=== PATIENT | male | born 1960 | race African-American/Black ===

== ENCOUNTER 2016-08-24 12:01 | Inpatient (IN) | payer OTHER ==
[2016-08-24 12:23] VITALS: BMI 27.1
--- NOTE | 2016-08-24 14:49 | HP ---
CIWA Score - CIWA Score Nausea/Vomitin Muscle Tremors: 3 Anxiety: 3 Agitation: 3 Paroxysmal Sweats: 1-Minimal Palms Moist Orientation: 0-Oriented Tacttile Disturbances: 2-Mild Itch/Numbness/Burn Auditory Disturbances: 2-Mild Harshness/Frighten Visual Disturbances: 2-Mild Sensitivity Headache: 2-Mild CIWA-Ar Total Score: 21 Admission ROS BHS - HPI Chief Complaint: i need help to stop drinking alcohol and cocaine Allergies/Adverse Reactions: Allergies Allergy/AdvReac Type Severity Reaction Status Date / Time aspirin Allergy Severe Nausea Verified 08/24/16 14:40 History of Present Illness: this 56 years old male with alcohol and cocaine dependence,withdrawal symptom, last detox [facility] 08/02 multiple admissions in detox and rehab weight loss nicotine dependence gerd longest period of sobriety 3 years Exam Limitations: No Limitations - Ebola screening Have you traveled outside of the country in the last 21 days: No Have you had contact with anyone from an Ebola affected area: No Have you been sick,other than usual withdrawal symptoms: No Do you have a fever: No - Review of Systems Constitutional: Loss of Appetite, Malaise, Night Sweats, Changes in sleep, Weakness, Unintentional Wgt. Loss EENT: reports: Nose Congestion Respiratory: reports: No Symptoms reported Cardiac: reports: No Symptoms Reported GI: reports: Nausea, Vomiting, Abdominal cramping : reports: No Symptoms Reported Musculoskeletal: reports: Back Pain, Muscle Pain Integumentary: reports: Dryness Neuro: reports: Headache, Tremors Endocrine: reports: No Symptoms Reported Hematology: reports: No Symptoms Reported, Other (hiv) Psychiatric: reports: other (bipolar disorder) Patient History - Patient Medical History Hx Anemia: No Hx Asthma: Yes (on albutrol and symbicort) Hx Chronic Obstructive Pulmonary Disease (COPD): No Hx Cancer: No Hx Cardiac Disorders: No Hx Congestive Heart Failure: No Hx Hypertension: No Hx Hypercholesterolemia: No Hx Pacemaker: No HX Cerebrovascular Accident: No Hx Seizures: No Hx Dementia: No Hx Diabetes: No Hx Gastrointestinal Disorders: Yes (gerd) Hx Liver Disease: No Hx Genitourinary Disorders: No Hx Sexually Transmitted Disorders: No Hx Renal Disease (ESRD): No Hx Thyroid Disease: No Hx Human Immunodeficiency Virus (HIV): Yes (since 2000) Hx Hepatitis C: No Hx Depression: No Hx Suicide Attempt: No Hx Bipolar Disorder: Yes Hx Schizophrenia: No Other Medical History: no suicidal,no homicidal - Patient Surgical History Past Surgical History: Yes Other Surgical History: homorrhoidectomy in 1995 - PPD History Previous Implant?: Yes Documented Results: Negative w/proof PPD to be Administered?: Yes - Smoking Cessation Smoking history: Current every day smoker Have you smoked in the past 12 months: Yes Aproximately how many cigarettes per day: 20 Cigars Per Day: 0 Initiated information on smoking cessation: Yes 'Breaking Loose' booklet given: 08/24/16 - Substance & Tx. History Hx Alcohol Use: Yes Hx Substance Use: Yes Substance Use Type: Alcohol, Cocaine Hx Substance Use Treatment: Yes Family Disease History - Family Disease History Family History: Denies Family Disease History: Other: Father (alcohol) Admission Physical Exam [facility] - Vital Signs Vital Signs: Vital Signs - 24 hr 08/24/16 12:20 Temperature 96.5 F L Pulse Rate 82 Respiratory 18 Rate Blood Pressure 126/91 - Physical General Appearance: Yes: Moderate Distress, Tremorous, Irritable, Sweating, Anxious HEENTM: Yes: Nasal Congestion Respiratory: Yes: Lungs Clear Neck: Yes: Within Normal Limits Breast: Yes: Within Normal Limits Cardiology: Yes: Within Normal Limits, Regular Rhythm, Regular Rate, S1, S2 Abdominal: Yes: Within Normal Limits, Normal Bowel Sounds, Non Tender, Flat, Soft Genitourinary: Yes: Within Normal Limits Back: Yes: Muscle Spasm Musculoskeletal: Yes: Back pain, Muscle Pain Extremities: Yes: Tremors Neurological: Yes: Within Normal Limits, satellite dish technician II-XII NML intact, Fully Oriented, Alert Integumentary: Yes: Dry Lymphatic: Yes: Within Normal Limits - Diagnostic (1) Alcohol dependence with uncomplicated withdrawal Current Visit: Yes Status: Acute (2) Cocaine dependence Current Visit: Yes Status: Acute (3) HIV (human immunodeficiency virus infection) Current Visit: Yes Status: Acute (4) Bipolar disorder Current Visit: Yes Status: Acute (5) Nicotine dependence Current Visit: Yes Status: Acute (6) Low back pain Current Visit: Yes Status: Acute (7) Neck pain Current Visit: Yes Status: Acute Cleared for Admission [facility] - Detox or Rehab [facility] Level of Care: Medically Managed Detox Regimen/Protocol: Librium S Breath Alcohol Content Breath Alcohol Content: 0.017 Urine Drug Screen - Results Drug Screen Negative: No Urine Drug Screen Results: ROXANE-Cocaine, OXY-Oxycodone
[2016-08-24] MEDS ORDERED: ACETAMINOPHEN 325 MG TABLET (FP) PO PRN (15:03)
[2016-08-24] MEDS ORDERED: hydrOXYzine PAMOATE 50 MG CAPSULE (FP) PO PRN (15:03)
[2016-08-24] MEDS ORDERED: MENTHOL/PHENOL 1 EACH UD MM PRN (15:03)
[2016-08-24] MEDS ORDERED: MAG HYDROX/AL HYDROX/SIMETH 30 ML UNIT-DOSE CUP PO PRN (15:03)
[2016-08-24] MEDS ORDERED: IBUPROFEN 400 MG TABLET (FP) PO PRN (15:03)
[2016-08-24] MEDS ORDERED: chlordiazePOXIDE HCL 25 MG CAPSULE PO PRN (15:03)
[2016-08-24] MEDS ORDERED: NICOTINE POLACRILEX 2 MG GUM BUC PRN (15:03)
[2016-08-24] MEDS ORDERED: guaiFENesin/D-METHORPHAN HB 10 ML UNIT-DOSE CUPS PO PRN (15:03)
[2016-08-24] MEDS ORDERED: P-EPHED 60MG/TRIPROLIDI 2.5MG TABLET PO PRN (15:03)
[2016-08-24] MEDS ORDERED: LOPERAMIDE HCL 2 MG CAPSULE PO PRN (15:03)
[2016-08-24] MEDS ORDERED: MAGNESIUM CITRATE 300 ML BOTTLE PO PRN (15:03)
[2016-08-24] MEDS ORDERED: MAGNESIUM HYDROX 2400MG/30ML ORAL SUSPENSION 30 ML CUP PO PRN (15:03)
[2016-08-24] MEDS ORDERED: ALBUTEROL SO4 6.7 GM HFA INHALER IH PRN (15:09)
[2016-08-24] MEDS ORDERED: chlordiazePOXIDE HCL 25 MG CAPSULE PO ONE (15:22)
[2016-08-24] MEDS: NICOTINE 21 MG/24 HOURS TOPICAL PATCH TD SCH (15:43)
[2016-08-24] MEDS ORDERED: PATIENT'S OWN MEDICATION (NON-FORMULARY) (Omeprazole 40 MG) PO SCH (16:30)
[2016-08-24] MEDS: chlordiazePOXIDE HCL 25 MG CAPSULE PO SCH ×2 (17:17→22:16)
--- NOTE | 2016-08-24 17:30 | PN ---
S Progress Note Note: RECEIVED PHARMACIST CALL PNEUMO 13 SHOULD NOT GIVE DUE TO PATIENT IS A SMOKER DISCONTINUE PNEUMO 13 ONE DOSE PNEUMOVAC CONTINUE DETOX
[2016-08-24 20:21] LABS: URINE APPEARANCE CLEAR; URINE BILIRUBIN NEGATIVE (NEGATIVE); URINE COLOR YELLOW; URINE GLUCOSE (UA) NEGATIVE (NEGATIVE); URINE KETONE NEGATIVE (NEGATIVE); URINE LEUK ESTERASE NEGATIVE (NEGATIVE); URINE NITRITE NEGATIVE (NEGATIVE); URINE UROBILINOGEN NEGATIVE E.U./dl (0.2-1.0)
[2016-08-24 20:24] LABS: URINE BLOOD 1+ (NEGATIVE); URINE PROTEIN 1+ (NEGATIVE)
[2016-08-24 20:37] LABS: URINE MUCUS FEW; URINE RBC 8 /hpf (0-3); URINE WBC <1 /hpf (3-5)
[2016-08-24] MEDS: BUDESONIDE/FORMETEROL FUMARATE 160/4.5 mcg INHALER IH SCH (22:16)
[2016-08-24] MEDS: FLUTICASONE PROP 0.05% 16 GM NASAL SPRAY NS SCH (22:16)
[2016-08-24] MEDS: diphenhydrAMINE HCL 50 MG CAPSULE PO PRN (22:17)
[2016-08-24] MEDS: EMTRICITAB PO SCH (22:18)
[2016-08-24] MEDS: TENOFOVIR PO SCH (22:18)
[2016-08-24] MEDS: EFAVIRENZ PO SCH (22:18)
[2016-08-24] MEDS: THIAMINE HCL 100 MG TABLET (FP) PO SCH (22:19)
[2016-08-25] MEDS: chlordiazePOXIDE HCL 25 MG CAPSULE PO SCH ×4 (06:07→22:33)
[2016-08-25] MEDS ORDERED: PANTOPRAZOLE 40 MG TABLET (FP) PO SCH ×2 (06:40→10:00)
[2016-08-25] MEDS ORDERED: PANTOPRAZOLE 40 MG TABLET (FP) PO ONE (07:21)
[2016-08-25] MEDS ORDERED: OMEPRAZOLE PO SCH (10:00)
--- NOTE | 2016-08-25 10:25 | PN ---
[facility] CIWA - CIWA Score Nausea/Vomitin-No Nausea/No Vomiting Muscle Tremors: 4-Moderate,w/Arms Extend Anxiety: 4-Mod. Anxious/Guarded Agitation: 4-Moderately Restless Paroxysmal Sweats: 1-Minimal Palms Moist Orientation: 0-Oriented Tacttile Disturbances: 3-Moderate Itch/Numb/Burn Auditory Disturbances: 0-None Visual Disturbances: 0-None Headache: 0-None Present CIWA-Ar Total Score: 16 S Progress Note (SOAP) Subjective: ANXIETY,IRRITABILITY,RIGHT SHOULDER PAIN--HX TORN ROTATOR CUFF AND TAKES PERCOCET. Objective: 08/25/16 10:24 Vital Signs Temperature 97.3 F L 08/25/16 09:46 Pulse Rate 94 H 08/25/16 09:46 Respiratory Rate 20 08/25/16 09:46 Blood Pressure 115/67 08/25/16 09:46 O2 Sat by Pulse Oximetry (%) Laboratory Last Values Sodium 142 mmol/L (136-145) 08/25/16 06:00 Potassium 4.1 mmol/L (3.5-5.1) 08/25/16 06:00 Chloride 107 mmol/L (98-107) 08/25/16 06:00 Urine Color Yellow 08/24/16 19:45 Urine Appearance Clear 08/24/16 19:45 Urine pH 5.0 (5.0-8.0) 08/24/16 19:45 Ur Specific [place] 1.028 (1.001-1.035) 08/24/16 19:45 Urine Protein 1+ (NEGATIVE) H 08/24/16 19:45 Urine Glucose (UA) Negative (NEGATIVE) 08/24/16 19:45 Urine Ketones Negative (NEGATIVE) 08/24/16 19:45 Urine Blood 1+ (NEGATIVE) H 08/24/16 19:45 Urine Nitrite Negative (NEGATIVE) 08/24/16 19:45 Urine Bilirubin Negative (NEGATIVE) 08/24/16 19:45 Urine Urobilinogen Negative E.U./dl (0.2-1.0) 08/24/16 19:45 Ur Leukocyte Esterase Negative (NEGATIVE) 08/24/16 19:45 Urine RBC 8 /hpf (0-3) 08/24/16 19:45 Urine WBC <1 /hpf (3-5) 08/24/16 19:45 Urine Mucus Few 08/24/16 19:45 Assessment: 08/25/16 10:24 WITHDRAWAL SX Plan: CONTINUE DETOX FLEXERIL DIRECTED.
[2016-08-25] MEDS: BUDESONIDE/FORMETEROL FUMARATE 160/4.5 mcg INHALER IH SCH ×2 (10:29→22:32)
[2016-08-25] MEDS: PRENATAL VITAMINS W/ FOLIC ACID TABLET (FP) PO SCH (10:29)
[2016-08-25] MEDS: FLUTICASONE PROP 0.05% 16 GM NASAL SPRAY NS SCH ×2 (10:30→23:03)
[2016-08-25] MEDS: NICOTINE 21 MG/24 HOURS TOPICAL PATCH TD SCH (10:30)
[2016-08-25 10:32] LABS: ALBUMIN 4.1 g/dl (3.4-5.0); ALK PHOS 112 U/L (45-117); ANION GAP 8 (8-16); BILIRUBIN,TOTAL 0.3 mg/dL (0.2-1.0); CALCIUM 8.9 mg/dL (8.5-10.1); CO2 27 mmol/L (21-32); CREATININE 1.2 mg/dL (0.7-1.3); GLUCOSE,RANDOM 91 mg/dL (74-106); SGOT/AST 28 U/L (15-37); SGPT/ALT 23 U/L (12-78); TOT PROT 7.8 g/dl (6.4-8.2)
[2016-08-25 10:34] LABS: MCH 32.7 pg (25.7-33.7); MCHC 33.4 g/dl (32.0-35.9); MEAN CELL VOLUME 98.1 fl (80-96); PLATELET COUNT 183 K/MM3 (134-434); RDW 13.4 % (11.9-15.9); WHITE BLOOD COUNT 8.4 K/mm3 (4.0-10.0)
--- NOTE | 2016-08-25 11:37 | CONSULT ---
[facility] Psychiatric Consult - Data Date of interview: 08/25/16 Admission source: [facility] Identifying data: First admission to [facility] for this 56 y/o AA male seeking detox treatment on for alcohol and cocaine dependence.Patient is ,a father of three,domiciled,unemployed and supported on [employer] funds. Substance Abuse History: - Smoking Cessation. Smoking history: Current every day smoker. Have you smoked in the past 12 months: Yes. Aproximately how many cigarettes per day: 20. Cigars Per Day: 0. Initiated information on smoking cessation: Yes. 'Breaking Loose' booklet given: 08/24/16. - Substance & Tx. History. Hx Alcohol Use: Yes. Hx Substance Use: Yes. Substance Use Type: Alcohol, Cocaine. Hx Substance Use Treatment: Yes. Confirmed by patient in this interview. Medical History: Remarkable for HIV infection since 2000,GERD,brochialmasthma, chronic back pain and a history of hemorrhoidectomy (1995). Psychiatric History: Diagnosed with MDD,Adjustment Disorder and Bipolar Disorder ,as per self-report.Mr Addison informs that he takes celexa,abilfy and clonazepam at home.No reported history of psychiatric hospitalizations.The patient gets his OPD care services at the [facility] in the [place].He endorses a history of fair adherence to aftercare and he denies any occurrence of suicide attempts. Physical/Sexual Abuse/Trauma History: Patient denies. Additional Comment: Urine Drug Screen Results: ROXANE-Cocaine, OXY-Oxycodone.Noted. Mental Status Exam - Mental Status Exam Alert and Oriented to: Time, Place, Person Cognitive Function: Good Patient Appearance: Well Groomed Mood: Withdrawn, Hopeful Affect: Mood Congruent Patient Behavior: Fatigued, Appropriate, Cooperative Speech Pattern: Clear, Appropriate Voice Loudness: Normal Thought Process: Goal Oriented Thought Disorder: Not Present Hallucinations: Denies Suicidal Ideation: Denies Homicidal Ideation: Denies Insight/Judgement: Poor Sleep: Fair Appetite: Good Muscle strength/Tone: Normal Gait/Station: Normal Psychiatric Findings - Problem List ([place] 1, 2,3) (1) Alcohol dependence with uncomplicated withdrawal Current Visit: Yes Status: Acute (2) Cocaine dependence Current Visit: Yes Status: Acute (3) Nicotine dependence Current Visit: Yes Status: Acute (4) Bipolar disorder Current Visit: Yes Status: Chronic (5) Low back pain Current Visit: Yes Status: Chronic - Initial Treatment Plan Initial Treatment Plan: Psychoeducation.Detoxification.Medications : citalopram 20 mg po daily + aripriprazole 15 mg po hs.Side effects/benefits of each drug discussed with the patient.He expresses his agreement to this careplan.Observation.
[2016-08-25] MEDS ORDERED: PNEUMOC 13-VAL CONJ-DIP CRM/PF 0.5 ML DISP.SYRIN IM ONE ×2 (12:00→13:45)
[2016-08-25] MEDS ORDERED: PNEUMOCOCCAL 23 VACCINE 0.5 ML VIAL IM ONE (12:00)
[2016-08-25] MEDS: CITALOPRAM HYDROBROMIDE 20 MG TABLET (FP) PO SCH (13:08)
[2016-08-25] MEDS: CYCLOBENZAPRINE HCL 10 MG TABLET (FP) PO SCH ×2 (13:24→22:33)
--- NOTE | 2016-08-25 13:33 | EKG ---
Test Reason : Blood Pressure : / mmHG Vent. Rate : 083 BPM Atrial Rate : 083 BPM P-R Int : 142 ms QRS Dur : 094 ms QT Int : 372 ms P-R-T Axes : 060 057 006 degrees QTc Int : 437 ms NORMAL SINUS RHYTHM NORMAL ECG NO PREVIOUS ECGS AVAILABLE Confirmed by CANDELARIO WRAY, MARCELA ([id number]) on 08/25/2016 1:33:02 PM Referred By: Confirmed By:MARCELA PALOMINO MD
--- NOTE | 2016-08-25 19:14 | PN ---
[facility] Progress Note Note: RECEIVED NURSE CALL PATIENT WANTS PROTONIX BID RECOMMEND TO PROVIDE OVER DOSE OF PROTONIX SIDE EFFECTS TO THE PATIENT
[2016-08-25] MEDS: THIAMINE HCL 100 MG TABLET (FP) PO SCH (22:32)
[2016-08-25] MEDS: ARIPiprazole 15 MG TABLET PO SCH (22:33)
[2016-08-25] MEDS: EFAVIRENZ PO SCH (22:34)
[2016-08-25] MEDS: TENOFOVIR PO SCH (22:34)
[2016-08-25] MEDS: EMTRICITAB PO SCH (22:34)
[2016-08-25] MEDS: diphenhydrAMINE HCL 50 MG CAPSULE PO PRN (22:36)
[2016-08-26] MEDS: chlordiazePOXIDE HCL 25 MG CAPSULE PO SCH ×2 (05:53→10:27)
[2016-08-26] MEDS: CYCLOBENZAPRINE HCL 10 MG TABLET (FP) PO SCH ×3 (05:53→22:34)
[2016-08-26] MEDS: PANTOPRAZOLE 40 MG TABLET (FP) PO SCH (05:53)
[2016-08-26] MEDS: CITALOPRAM HYDROBROMIDE 20 MG TABLET (FP) PO SCH (10:27)
[2016-08-26] MEDS: PRENATAL VITAMINS W/ FOLIC ACID TABLET (FP) PO SCH (10:27)
[2016-08-26] MEDS: NICOTINE 21 MG/24 HOURS TOPICAL PATCH TD SCH (10:27)
[2016-08-26] MEDS: BUDESONIDE/FORMETEROL FUMARATE 160/4.5 mcg INHALER IH SCH ×2 (10:28→22:35)
[2016-08-26] MEDS: FLUTICASONE PROP 0.05% 16 GM NASAL SPRAY NS SCH ×2 (10:29→22:35)
--- NOTE | 2016-08-26 10:39 | PN ---
[facility] CIWA - CIWA Score Nausea/Vomitin-No Nausea/No Vomiting Muscle Tremors: 4-Moderate,w/Arms Extend Anxiety: 4-Mod. Anxious/Guarded Agitation: 4-Moderately Restless Paroxysmal Sweats: 1-Minimal Palms Moist Orientation: 0-Oriented Tacttile Disturbances: 3-Moderate Itch/Numb/Burn Auditory Disturbances: 0-None Visual Disturbances: 0-None Headache: 0-None Present CIWA-Ar Total Score: 16 S Progress Note (SOAP) Subjective: ANXIETY,SWEATS,TREMORS,FATIGUE. Objective: 08/26/16 10:39 Vital Signs Temperature 96.2 F L 08/26/16 10:20 Pulse Rate 81 08/26/16 10:20 Respiratory Rate 18 08/26/16 10:20 Blood Pressure 105/61 08/26/16 10:20 O2 Sat by Pulse Oximetry (%) Laboratory Last Values WBC 8.4 K/mm3 (4.0-10.0) 08/25/16 06:00 RBC 4.45 M/mm3 (4.00-5.60) 08/25/16 06:00 Hgb 14.6 GM/dL (11.7-16.9) 08/25/16 06:00 Hct 43.7 % (35.4-49) 08/25/16 06:00 MCV 98.1 fl (80-96) H 08/25/16 06:00 MCHC 33.4 g/dl (32.0-35.9) 08/25/16 06:00 RDW 13.4 % (11.9-15.9) 08/25/16 06:00 Plt Count 183 K/MM3 (134-434) 08/25/16 06:00 MPV 8.0 fl (7.5-11.1) 08/25/16 06:00 Sodium 142 mmol/L (136-145) 08/25/16 06:00 Potassium 4.1 mmol/L (3.5-5.1) 08/25/16 06:00 Chloride 107 mmol/L (98-107) 08/25/16 06:00 Carbon Dioxide 27 mmol/L (21-32) 08/25/16 06:00 Anion Gap 8 (8-16) 08/25/16 06:00 BUN 14 mg/dL (7-18) 08/25/16 06:00 Creatinine 1.2 mg/dL (0.7-1.3) 08/25/16 06:00 Creat Clearance w eGFR > 60 (>60) 08/25/16 06:00 Random Glucose 91 mg/dL (74-106) 08/25/16 06:00 Calcium 8.9 mg/dL (8.5-10.1) 08/25/16 06:00 Total Bilirubin 0.3 mg/dL (0.2-1.0) 08/25/16 06:00 AST 28 U/L (15-37) 08/25/16 06:00 ALT 23 U/L (12-78) 08/25/16 06:00 Alkaline Phosphatase 112 U/L (45-117) 08/25/16 06:00 Total Protein 7.8 g/dl (6.4-8.2) 08/25/16 06:00 Albumin 4.1 g/dl (3.4-5.0) 08/25/16 06:00 Urine Color Yellow 08/24/16 19:45 Urine Appearance Clear 08/24/16 19:45 Urine pH 5.0 (5.0-8.0) 08/24/16 19:45 Ur Specific [place] 1.028 (1.001-1.035) 08/24/16 19:45 Urine Protein 1+ (NEGATIVE) H 08/24/16 19:45 Urine Glucose (UA) Negative (NEGATIVE) 08/24/16 19:45 Urine Ketones Negative (NEGATIVE) 08/24/16 19:45 Urine Blood 1+ (NEGATIVE) H 08/24/16 19:45 Urine Nitrite Negative (NEGATIVE) 08/24/16 19:45 Urine Bilirubin Negative (NEGATIVE) 08/24/16 19:45 Urine Urobilinogen Negative E.U./dl (0.2-1.0) 08/24/16 19:45 Ur Leukocyte Esterase Negative (NEGATIVE) 08/24/16 19:45 Urine RBC 8 /hpf (0-3) 08/24/16 19:45 Urine WBC <1 /hpf (3-5) 08/24/16 19:45 Urine Mucus Few 08/24/16 19:45 RPR Titer Nonreactive (NONREACTIVE) 08/25/16 06:00 Assessment: 08/26/16 10:39 WITHDRAWAL SX Plan: CONTINUE DETOX
[2016-08-26] MEDS: chlordiazePOXIDE 5 MG CAPSULE PO SCH ×2 (17:59→22:33)
[2016-08-26] MEDS: THIAMINE HCL 100 MG TABLET (FP) PO SCH (22:33)
[2016-08-26] MEDS: EFAVIRENZ PO SCH (22:34)
[2016-08-26] MEDS: ARIPiprazole 15 MG TABLET PO SCH (22:34)
[2016-08-26] MEDS: TENOFOVIR PO SCH (22:34)
[2016-08-26] MEDS: EMTRICITAB PO SCH (22:34)
[2016-08-26] MEDS: diphenhydrAMINE HCL 50 MG CAPSULE PO PRN (22:35)
[2016-08-27] MEDS: chlordiazePOXIDE 5 MG CAPSULE PO SCH ×2 (06:02→10:14)
[2016-08-27] MEDS: CYCLOBENZAPRINE HCL 10 MG TABLET (FP) PO SCH ×3 (06:02→22:04)
[2016-08-27] MEDS: PANTOPRAZOLE 40 MG TABLET (FP) PO SCH (06:02)
[2016-08-27] MEDS: BUDESONIDE/FORMETEROL FUMARATE 160/4.5 mcg INHALER IH SCH ×2 (10:14→22:05)
[2016-08-27] MEDS: PRENATAL VITAMINS W/ FOLIC ACID TABLET (FP) PO SCH (10:14)
[2016-08-27] MEDS: FLUTICASONE PROP 0.05% 16 GM NASAL SPRAY NS SCH ×2 (10:14→22:04)
[2016-08-27] MEDS: CITALOPRAM HYDROBROMIDE 20 MG TABLET (FP) PO SCH (10:15)
[2016-08-27] MEDS: NICOTINE 21 MG/24 HOURS TOPICAL PATCH TD SCH (10:15)
[2016-08-27] MEDS: AMMONIUM LACTATE 12% LOTION 225 GM BOTTLE TP SCH ×2 (10:51→22:07)
--- NOTE | 2016-08-27 10:54 | PN ---
[facility] Progress Note (SOAP) Subjective: ANXIETY,SWEATS,FATIGUE. DRY SKIN. Objective: 08/27/16 10:53 Vital Signs Temperature 96 F L 08/27/16 10:42 Pulse Rate 87 08/27/16 10:42 Respiratory Rate 20 08/27/16 10:42 Blood Pressure 108/82 08/27/16 10:42 O2 Sat by Pulse Oximetry (%) Assessment: 08/27/16 10:54 WITHDRAWAL SX Plan: CONTINUE DETOX
[2016-08-27] MEDS: chlordiazePOXIDE HCL 10 MG CAPSULE PO SCH ×2 (17:18→22:18)
[2016-08-27] MEDS: ARIPiprazole 15 MG TABLET PO SCH (22:04)
[2016-08-27] MEDS: TENOFOVIR PO SCH (22:05)
[2016-08-27] MEDS: EFAVIRENZ PO SCH (22:05)
[2016-08-27] MEDS: EMTRICITAB PO SCH (22:05)
[2016-08-27] MEDS: diphenhydrAMINE HCL 50 MG CAPSULE PO PRN (22:06)
[2016-08-27] MEDS: THIAMINE HCL 100 MG TABLET (FP) PO SCH (22:07)
[2016-08-28] MEDS: chlordiazePOXIDE HCL 10 MG CAPSULE PO SCH (05:54)
[2016-08-28] MEDS: PANTOPRAZOLE 40 MG TABLET (FP) PO SCH (05:54)
[2016-08-28] MEDS: CYCLOBENZAPRINE HCL 10 MG TABLET (FP) PO SCH (05:55)
[2016-08-28 09:47] VITALS: BP 115/73; PULSE 86; TEMP 96
--- NOTE | 2016-08-28 09:48 | DS ---
[facility] Detox Discharge Summary Admission Date: 08/24/16 Discharge Date: 08/28/16 - History Present History: Alcohol Dependence, Cocaine Dependence Pertinent Past History: HIV - Physical Exam Results Vital Signs: Vital Signs Temperature 96.2 F L 08/28/16 07:08 Pulse Rate 83 08/28/16 07:08 Respiratory Rate 16 08/28/16 07:08 Blood Pressure 104/70 08/28/16 07:08 O2 Sat by Pulse Oximetry (%) Pertinent Admission Physical Exam Findings: withdrawal sx. Laboratory Last Values WBC 8.4 K/mm3 (4.0-10.0) 08/25/16 06:00 RBC 4.45 M/mm3 (4.00-5.60) 08/25/16 06:00 Hgb 14.6 GM/dL (11.7-16.9) 08/25/16 06:00 Hct 43.7 % (35.4-49) 08/25/16 06:00 MCV 98.1 fl (80-96) H 08/25/16 06:00 MCHC 33.4 g/dl (32.0-35.9) 08/25/16 06:00 RDW 13.4 % (11.9-15.9) 08/25/16 06:00 Plt Count 183 K/MM3 (134-434) 08/25/16 06:00 MPV 8.0 fl (7.5-11.1) 08/25/16 06:00 Sodium 142 mmol/L (136-145) 08/25/16 06:00 Potassium 4.1 mmol/L (3.5-5.1) 08/25/16 06:00 Chloride 107 mmol/L (98-107) 08/25/16 06:00 Carbon Dioxide 27 mmol/L (21-32) 08/25/16 06:00 Anion Gap 8 (8-16) 08/25/16 06:00 BUN 14 mg/dL (7-18) 08/25/16 06:00 Creatinine 1.2 mg/dL (0.7-1.3) 08/25/16 06:00 Creat Clearance w eGFR > 60 (>60) 08/25/16 06:00 Random Glucose 91 mg/dL (74-106) 08/25/16 06:00 Calcium 8.9 mg/dL (8.5-10.1) 08/25/16 06:00 Total Bilirubin 0.3 mg/dL (0.2-1.0) 08/25/16 06:00 AST 28 U/L (15-37) 08/25/16 06:00 ALT 23 U/L (12-78) 08/25/16 06:00 Alkaline Phosphatase 112 U/L (45-117) 08/25/16 06:00 Total Protein 7.8 g/dl (6.4-8.2) 08/25/16 06:00 Albumin 4.1 g/dl (3.4-5.0) 08/25/16 06:00 Urine Color Yellow 08/24/16 19:45 Urine Appearance Clear 08/24/16 19:45 Urine pH 5.0 (5.0-8.0) 08/24/16 19:45 Ur Specific [place] 1.028 (1.001-1.035) 08/24/16 19:45 Urine Protein 1+ (NEGATIVE) H 08/24/16 19:45 Urine Glucose (UA) Negative (NEGATIVE) 08/24/16 19:45 Urine Ketones Negative (NEGATIVE) 08/24/16 19:45 Urine Blood 1+ (NEGATIVE) H 08/24/16 19:45 Urine Nitrite Negative (NEGATIVE) 08/24/16 19:45 Urine Bilirubin Negative (NEGATIVE) 08/24/16 19:45 Urine Urobilinogen Negative E.U./dl (0.2-1.0) 08/24/16 19:45 Ur Leukocyte Esterase Negative (NEGATIVE) 08/24/16 19:45 Urine RBC 8 /hpf (0-3) 08/24/16 19:45 Urine WBC <1 /hpf (3-5) 08/24/16 19:45 Urine Mucus Few 08/24/16 19:45 RPR Titer Nonreactive (NONREACTIVE) 08/25/16 06:00 labs noted - Treatment Hospital Course: Detox Protocol Followed, Detoxed Safely, Responded well, Discharged Condition Good, Rehab Referral Accepted - Medication Discharge Medications: Ambulatory Orders Albuterol Sulfate Inhaler - [Ventolin Hfa Inhaler -] 2 inh PO Q4H PRN 08/24/16 Ammonium Lactate Lotion [Lac-Hydrin 12% Lotion -] 1 applic TP ASDIR 08/24/16 Aripiprazole [Abilify -] 15 mg PO DAILY 08/24/16 Budesonide/Formeterol Fumarate [SYMBICORT 160/4.5mcg -] 2 inh PO BID 08/24/16 Citalopram Hydrobromide [Celexa -] 20 mg PO DAILY 08/24/16 Efavirenz/Emtricitab/Tenofovir [Atripla -] 1 tab PO HS 08/24/16 Fluticasone Prop 0.05% Nasal [Flonase -] 1 inh IH BID 08/24/16 Multivitamins [Tab-A-Vit -] 1 tab PO DAILY 08/24/16 Omeprazole 40 mg PO BID 08/24/16 Aripiprazole [Abilify -] 15 mg PO HS #30 tablet 08/25/16 Citalopram Hydrobromide [Celexa -] 20 mg PO DAILY #30 tablet 08/25/16 - Diagnosis (1) Alcohol dependence with uncomplicated withdrawal Current Visit: Yes Status: Acute (2) Cocaine dependence Current Visit: Yes Status: Acute Qualifiers: Substance use status: uncomplicated Qualified Code(s): F14.20 - Cocaine dependence, uncomplicated (3) HIV (human immunodeficiency virus infection) Current Visit: Yes Status: Acute (4) Nicotine dependence Current Visit: Yes Status: Acute Qualifiers: Nicotine product type: cigarettes Substance use status: uncomplicated Qualified Code(s): F17.210 - Nicotine dependence, cigarettes, uncomplicated (5) Bipolar disorder Current Visit: Yes Status: Chronic (6) Asthma Current Visit: Yes Status: Acute Qualifiers: Asthma severity: mild intermittent Asthma complication type: uncomplicated Qualified Code(s): J45.20 - Mild intermittent asthma, uncomplicated (7) GERD (gastroesophageal reflux disease) Current Visit: Yes Status: Acute Qualifiers: Esophagitis presence: without esophagitis Qualified Code(s): K21.9 - Gastro-esophageal reflux disease without esophagitis - AMA Did Patient Leave Against Medical Advice: No
== END 2016-08-28 09:16 | disposition home or self-care (01) | DRG 774 ==
LOC: YASAS 12:01 → Y3N 15:08
PROVIDERS: ADMIT Internal Medicine; ATTEND Internal Medicine
PROC: HZ2ZZZZ Detoxification Services for Substance Abuse Treatment (ICD-10-PCS; principal; 2016-08-28)
DX: F10.230 Alcohol dependence with withdrawal, uncomplicated (principal); F14.20 Cocaine dependence, uncomplicated; F17.210 Nicotine dependence, cigarettes, uncomplicated; F31.9 Bipolar disorder, unspecified; J45.20 Mild intermittent asthma, uncomplicated; K21.9 Gastro-esophageal reflux disease without esophagitis; M54.5 Low back pain; G89.29 Other chronic pain
CPT/HCPCS: 36415; 80053; 81003; 81015; 85027; 86593; 90670; 93005; 93010

== ENCOUNTER 2016-10-13 10:41 | Inpatient (IN) | payer OTHER ==
[2016-10-13 11:05] VITALS: BMI 26.0
--- NOTE | 2016-10-13 13:05 | HP ---
CIWA Score - CIWA Score Nausea/Vomitin-No Nausea/No Vomiting Muscle Tremors: 4-Moderate,w/Arms Extend Anxiety: 4-Mod. Anxious/Guarded Agitation: 4-Moderately Restless Paroxysmal Sweats: 3 Orientation: 0-Oriented Tacttile Disturbances: 0-None Auditory Disturbances: 0-None Visual Disturbances: 0-None Headache: 2-Mild CIWA-Ar Total Score: 17 Admission ROS BHS - HPI Chief Complaint: I need to detox. Allergies/Adverse Reactions: Allergies Allergy/AdvReac Type Severity Reaction Status Date / Time aspirin Allergy Severe Nausea Verified 10/13/16 12:18 History of Present Illness: Pt is a 56yr old male with a history of alcohol dependence seeking detox for treatment. Pt states he only uses percocet occasionally for his chronic pain; his main concern for detox is alcohol. Exam Limitations: No Limitations - Ebola screening Have you traveled outside of the country in the last 21 days: No Have you had contact with anyone from an Ebola affected area: No Have you been sick,other than usual withdrawal symptoms: No Do you have a fever: No - Review of Systems Constitutional: Chills, Diaphoresis, Changes in sleep, Unintentional Wgt. Loss EENT: reports: Nose Congestion Respiratory: reports: No Symptoms reported Cardiac: reports: No Symptoms Reported GI: reports: Poor Appetite, Poor Fluid Intake, Indigestion : reports: No Symptoms Reported Musculoskeletal: reports: Back Pain, Joint Pain Integumentary: reports: Flushing, Sweating Neuro: reports: Tingling, Tremors Endocrine: reports: Excessive Sweating, Flushing, Intolerance to Cold, Intolerance to Heat Hematology: reports: No Symptoms Reported Psychiatric: reports: Judgement Intact, Orientated x3, Agitated, Anxious Other Systems: Reviewed and Negative Patient History - Patient Medical History Hx Anemia: No Hx Asthma: No Hx Chronic Obstructive Pulmonary Disease (COPD): Yes Hx Cancer: No Hx Cardiac Disorders: No Hx Congestive Heart Failure: No Hx Hypertension: No Hx Hypercholesterolemia: No Hx Pacemaker: No HX Cerebrovascular Accident: No Hx Seizures: No Hx Dementia: No Hx Diabetes: No Hx Gastrointestinal Disorders: No Hx Liver Disease: No Hx Genitourinary Disorders: No Hx Sexually Transmitted Disorders: No Hx Renal Disease (ESRD): No Hx Thyroid Disease: No Hx Human Immunodeficiency Virus (HIV): Yes (since 2000) Hx Hepatitis C: No Hx Depression: Yes Hx Suicide Attempt: No Hx Bipolar Disorder: Yes Hx Schizophrenia: No - Patient Surgical History Past Surgical History: Yes Hx Neurologic Surgery: No Hx Cataract Extraction: No Hx Cardiac Surgery: No Hx Lung Surgery: No Hx Breast Surgery: No Hx Breast Biopsy: No Hx Abdominal Surgery: No Hx Appendectomy: No Hx Cholecystectomy: No Hx Genitourinary Surgery: No Hx Section: No Hx Orthopedic Surgery: No Other Surgical History: homorrhoidectomy in 1995 Anesthesia Reaction: No - PPD History Previous Implant?: Yes Documented Results: Negative w/proof Implanted On Prior R Admission?: Yes Date: 08/26/16 Results: 0 mm PPD to be Administered?: No - Reproductive History Patient is a Female of Child Bearing Age (11 -55 yrs old): No - Smoking Cessation Smoking history: Current every day smoker Have you smoked in the past 12 months: Yes Aproximately how many cigarettes per day: 20 Cigars Per Day: 0 Hx Chewing Tobacco Use: No Initiated information on smoking cessation: Yes 'Breaking Loose' booklet given: 10/13/16 - Substance & Tx. History Hx Alcohol Use: Yes Hx Substance Use: Yes Substance Use Type: Alcohol, Cocaine Hx Substance Use Treatment: Yes - Substances Abused Crack Route: Smoking Frequency: 3-6 times per week Amount used: $20-40 Age of first use: 26 Date of Last Use: 10/12/16 Alcohol-beer/vodka Route: Oral Frequency: Daily Amount used: 3-4 (16 oz.)/1 pt. Age of first use: 13 Date of Last Use: 10/13/16 Percocet Route: Oral Frequency: 1-2 times per week Amount used: 2-3 tabs. (10/325 mg.) Age of first use: 56 Date of Last Use: 10/12/16 Family Disease History - Family Disease History Family Disease History: Other: Father (alcohol) Admission Physical Exam BHS - Vital Signs Vital Signs: Vital Signs - 24 hr 10/13/16 11:04 Temperature 96.4 F L Pulse Rate 73 Respiratory 18 Rate Blood Pressure 123/71 - Physical General Appearance: Yes: Appropriately Dressed, Moderate Distress, Tremorous, Irritable, Sweating, Anxious HEENTM: Yes: Hearing grossly Normal, Normal Voice, Nasal Congestion, Rhinorrhea Respiratory: Yes: Lungs Clear, Normal Breath Sounds, No Respiratory Distress Neck: Yes: Within Normal Limits Breast: Yes: Within Normal Limits Cardiology: Yes: Regular Rhythm, Regular Rate, S1, S2 Abdominal: Yes: Normal Bowel Sounds, Non Tender, Soft Genitourinary: Yes: Within Normal Limits Back: Yes: Normal Inspection Musculoskeletal: Yes: full range of Motion Extremities: Yes: Normal Capillary Refill, Normal Inspection, Tremors Neurological: Yes: Fully Oriented, Alert, Normal Response Integumentary: Yes: Normal Color, Diaphoresis Lymphatic: Yes: Within Normal Limits - Diagnostic (1) Neck pain Current Visit: Yes Status: Chronic (2) Alcohol dependence with uncomplicated withdrawal Current Visit: Yes Status: Chronic (3) Asthma Current Visit: Yes Status: Chronic Qualifiers: Asthma severity: mild intermittent Asthma complication type: uncomplicated Qualified Code(s): J45.20 - Mild intermittent asthma, uncomplicated (4) Cocaine dependence Current Visit: Yes Status: Chronic Qualifiers: Substance use status: uncomplicated Qualified Code(s): F14.20 - Cocaine dependence, uncomplicated (5) GERD (gastroesophageal reflux disease) Current Visit: Yes Status: Chronic Qualifiers: Esophagitis presence: without esophagitis Qualified Code(s): K21.9 - Gastro-esophageal reflux disease without esophagitis (6) HIV (human immunodeficiency virus infection) Current Visit: Yes Status: Chronic Comment: pt brought in his own Atripila (7) Low back pain Current Visit: Yes Status: Chronic Qualifiers: Chronicity: chronic Back pain laterality: unspecified (8) Nicotine dependence Current Visit: Yes Status: Chronic Qualifiers: Nicotine product type: cigarettes Substance use status: uncomplicated Qualified Code(s): F17.210 - Nicotine dependence, cigarettes, uncomplicated (9) Percocet use disorder, mild Current Visit: Yes Status: Chronic Cleared for Admission S - Detox or Rehab [facility] Level of Care: Medically Managed Detox Regimen/Protocol: Librium [facility] Breath Alcohol Content Breath Alcohol Content: 0.008 Urine Drug Screen - Results Drug Screen Negative: No Urine Drug Screen Results: ROXANE-Cocaine, OXY-Oxycodone
[2016-10-13] MEDS ORDERED: MAGNESIUM HYDROX 2400MG/30ML ORAL SUSPENSION 30 ML CUP PO PRN (13:09)
[2016-10-13] MEDS ORDERED: hydrOXYzine PAMOATE 50 MG CAPSULE (FP) PO PRN (13:09)
[2016-10-13] MEDS ORDERED: IBUPROFEN 400 MG TABLET (FP) PO PRN (13:09)
[2016-10-13] MEDS ORDERED: diphenhydrAMINE HCL 50 MG CAPSULE PO PRN (13:09)
[2016-10-13] MEDS ORDERED: MAGNESIUM CITRATE 300 ML BOTTLE PO PRN (13:09)
[2016-10-13] MEDS ORDERED: P-EPHED 60MG/TRIPROLIDI 2.5MG TABLET PO PRN (13:09)
[2016-10-13] MEDS ORDERED: MENTHOL/PHENOL 1 EACH UD MM PRN (13:09)
[2016-10-13] MEDS ORDERED: LOPERAMIDE HCL 2 MG CAPSULE PO PRN (13:09)
[2016-10-13] MEDS ORDERED: MAG HYDROX/AL HYDROX/SIMETH 30 ML UNIT-DOSE CUP PO PRN (13:09)
[2016-10-13] MEDS ORDERED: chlordiazePOXIDE HCL 25 MG CAPSULE PO PRN (13:09)
[2016-10-13] MEDS ORDERED: ACETAMINOPHEN 325 MG TABLET (FP) PO PRN (13:09)
[2016-10-13] MEDS ORDERED: guaiFENesin/D-METHORPHAN HB 10 ML UNIT-DOSE CUPS PO PRN (13:09)
[2016-10-13] MEDS ORDERED: NICOTINE POLACRILEX 4 MG GUM BUC PRN (13:09)
[2016-10-13] MEDS ORDERED: ALBUTEROL SO4 6.7 GM HFA INHALER IH PRN (13:12)
[2016-10-13] MEDS ORDERED: chlordiazePOXIDE HCL 25 MG CAPSULE PO ONE (14:55)
[2016-10-13] MEDS: AMMONIUM LACTATE 12% LOTION 225 GM BOTTLE TP SCH ×2 (15:39→22:13)
[2016-10-13] MEDS: BUDESONIDE/FORMETEROL FUMARATE 160/4.5 mcg INHALER IH SCH ×2 (15:39→22:10)
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
[2016-10-13] MEDS: chlordiazePOXIDE HCL 25 MG CAPSULE PO SCH ×2 (17:09→22:11)
[2016-10-13 18:50] LABS: URINE APPEARANCE CLEAR; URINE BILIRUBIN NEGATIVE (NEGATIVE); URINE COLOR LTYELLOW; URINE GLUCOSE (UA) NEGATIVE (NEGATIVE); URINE KETONE NEGATIVE (NEGATIVE); URINE LEUK ESTERASE NEGATIVE (NEGATIVE); URINE NITRITE NEGATIVE (NEGATIVE); URINE PROTEIN NEGATIVE (NEGATIVE); URINE UROBILINOGEN NEGATIVE E.U./dl (0.2-1.0)
[2016-10-13 19:19] LABS: URINE BLOOD 1+ (NEGATIVE)
[2016-10-13 19:21] LABS: URINE MUCUS RARE; URINE RBC 2 /hpf (0-3); URINE WBC 2 /hpf (3-5)
[2016-10-13] MEDS ORDERED: FLUTICASONE PROP 0.05% 16 GM NASAL SPRAY NS SCH (22:00)
[2016-10-13] MEDS: THIAMINE HCL 100 MG TABLET (FP) PO SCH (22:11)
[2016-10-13] MEDS: ARIPiprazole 15 MG TABLET PO SCH (22:11)
[2016-10-13] MEDS: FLUTICASONE PROP 0.05% 16 GM NASAL SPRAY NS SCH (22:12)
[2016-10-13] MEDS: PATIENT'S OWN MEDICATION (NON-FORMULARY) (Efavirenz/Emtricitab/Tenofovir 1 TAB) PO SCH (22:13)
[2016-10-14] MEDS: chlordiazePOXIDE HCL 25 MG CAPSULE PO SCH ×4 (06:23→22:00)
[2016-10-14 10:12] LABS: MCHC 33.8 g/dl (32.0-35.9); MEAN CELL VOLUME 97.6 fl (80-96); MEAN PLT VOLUME 8.5 fl (7.5-11.1); PLATELET COUNT 173 K/MM3 (134-434); WHITE BLOOD COUNT 10.3 K/mm3 (4.0-10.0)
[2016-10-14] MEDS: CITALOPRAM HYDROBROMIDE 20 MG TABLET (FP) PO SCH (10:12)
[2016-10-14] MEDS: BUDESONIDE/FORMETEROL FUMARATE 160/4.5 mcg INHALER IH SCH ×2 (10:12→22:04)
[2016-10-14] MEDS: PRENATAL VITAMINS W/ FOLIC ACID TABLET (FP) PO SCH (10:12)
[2016-10-14] MEDS: FLUTICASONE PROP 0.05% 16 GM NASAL SPRAY NS SCH ×2 (10:13→22:03)
[2016-10-14] MEDS: AMMONIUM LACTATE 12% LOTION 225 GM BOTTLE TP SCH ×2 (10:15→22:03)
[2016-10-14] MEDS: NICOTINE 21 MG/24 HOURS TOPICAL PATCH TD SCH (10:15)
--- NOTE | 2016-10-14 11:07 | PN ---
S CIWA - CIWA Score Nausea/Vomitin Muscle Tremors: 3 Anxiety: 3 Agitation: 2 Paroxysmal Sweats: 3 Orientation: 0-Oriented Tacttile Disturbances: 2-Mild Itch/Numbness/Burn Auditory Disturbances: 0-None Visual Disturbances: 0-None Headache: 0-None Present CIWA-Ar Total Score: 16 S Progress Note (SOAP) Subjective: interrupted sleep, sweats, shakes cramps, Objective: 10/14/16 11:05 Vital Signs Temperature 96.6 F L 10/14/16 10:11 Pulse Rate 67 10/14/16 10:11 Respiratory Rate 20 10/14/16 10:11 Blood Pressure 126/75 10/14/16 10:11 O2 Sat by Pulse Oximetry (%) Laboratory Tests 10/13/16 10/14/16 10/14/16 13:00 06:00 06:00 WBC 10.3 H RBC 4.49 Hgb 14.8 Hct 43.9 MCV 97.6 H MCHC 33.8 RDW 13.0 Plt Count 173 MPV 8.5 Sodium 143 Potassium 3.9 Chloride 106 Urine Color Ltyellow Urine Appearance Clear Urine pH 5.0 Ur Specific [place] 1.012 Urine Protein Negative Urine Glucose (UA) Negative Urine Ketones Negative Urine Blood 1+ H Urine Nitrite Negative Urine Bilirubin Negative Urine Urobilinogen Negative Ur Leukocyte Esterase Negative Urine RBC 2 Urine WBC 2 Ur Epithelial Cells Rare Urine Mucus Rare pt aox3 in nad ambulating Assessment: 10/14/16 11:06 withdrawal sx's Plan: cont. detox increase fluids protonix at 7amfluids
[2016-10-14 11:11] LABS: ALBUMIN 3.8 g/dl (3.4-5.0); ALK PHOS 100 U/L (45-117); ANION GAP 10 (8-16); BILIRUBIN,TOTAL 0.8 mg/dL (0.2-1.0); CALCIUM 8.9 mg/dL (8.5-10.1); CO2 27 mmol/L (21-32); CREATININE 1.1 mg/dL (0.7-1.3); GLUCOSE,RANDOM 93 mg/dL (74-106); SGOT/AST 30 U/L (15-37); SGPT/ALT 32 U/L (12-78); TOT PROT 7.6 g/dl (6.4-8.2)
--- NOTE | 2016-10-14 12:34 | EKG ---
Test Reason : Blood Pressure : / mmHG Vent. Rate : 054 BPM Atrial Rate : 054 BPM P-R Int : 130 ms QRS Dur : 102 ms QT Int : 412 ms P-R-T Axes : 051 057 031 degrees QTc Int : 390 ms SINUS BRADYCARDIA OTHERWISE NORMAL ECG WHEN COMPARED WITH ECG OF 24-AUG-2016 15:49, VENT. RATE HAS DECREASED BY 29 BPM Confirmed by DARRELL LAO MD ([id number]) on 10/14/2016 12:34:19 PM Referred By: Confirmed By:DARRELL LAO MD
[2016-10-14] MEDS: THIAMINE HCL 100 MG TABLET (FP) PO SCH (22:00)
[2016-10-14] MEDS: ARIPiprazole 15 MG TABLET PO SCH (22:00)
[2016-10-14] MEDS: PATIENT'S OWN MEDICATION (NON-FORMULARY) (Efavirenz/Emtricitab/Tenofovir 1 TAB) PO SCH (22:01)
[2016-10-15] MEDS: chlordiazePOXIDE HCL 25 MG CAPSULE PO SCH ×2 (04:58→10:13)
[2016-10-15] MEDS: PANTOPRAZOLE 40 MG TABLET (FP) PO SCH (07:14)
[2016-10-15] MEDS: CITALOPRAM HYDROBROMIDE 20 MG TABLET (FP) PO SCH (10:11)
[2016-10-15] MEDS: PRENATAL VITAMINS W/ FOLIC ACID TABLET (FP) PO SCH (10:11)
[2016-10-15] MEDS ORDERED: CYCLOBENZAPRINE HCL 10 MG TABLET (FP) PO PRN (10:12)
[2016-10-15] MEDS: FLUTICASONE PROP 0.05% 16 GM NASAL SPRAY NS SCH ×3 (10:12→22:29)
[2016-10-15] MEDS: BUDESONIDE/FORMETEROL FUMARATE 160/4.5 mcg INHALER IH SCH ×2 (10:13→22:29)
[2016-10-15] MEDS: NICOTINE 21 MG/24 HOURS TOPICAL PATCH TD SCH (10:16)
--- NOTE | 2016-10-15 10:16 | PN ---
S CIWA - CIWA Score Nausea/Vomitin Muscle Tremors: 3 Anxiety: 3 Agitation: 3 Paroxysmal Sweats: 1-Minimal Palms Moist Orientation: 0-Oriented Tacttile Disturbances: 1-Very Mild Itch/Numbness Auditory Disturbances: 1-Very Mild Visual Disturbances: 1-Very Mild Sensitivity Headache: 2-Mild CIWA-Ar Total Score: 18 S Progress Note (SOAP) Subjective: ALERT,IRRITABLE,ANXIOUS,INTERRUPTED SLEEP,PAIN IN THE LOWER BACK,TREMOR Objective: 10/15/16 10:15 Vital Signs Temperature 97.9 F 10/15/16 10:13 Pulse Rate 58 L 10/15/16 10:13 Respiratory Rate 16 10/15/16 10:13 Blood Pressure 112/65 10/15/16 10:13 O2 Sat by Pulse Oximetry (%) 10/15/16 10:15 EKG NSR,NORMAL ECG Laboratory Last Values WBC 10.3 K/mm3 (4.0-10.0) H 10/14/16 06:00 RBC 4.49 M/mm3 (4.00-5.60) 10/14/16 06:00 Hgb 14.8 GM/dL (11.7-16.9) 10/14/16 06:00 Hct 43.9 % (35.4-49) 10/14/16 06:00 MCV 97.6 fl (80-96) H 10/14/16 06:00 MCHC 33.8 g/dl (32.0-35.9) 10/14/16 06:00 RDW 13.0 % (11.9-15.9) 10/14/16 06:00 Plt Count 173 K/MM3 (134-434) 10/14/16 06:00 MPV 8.5 fl (7.5-11.1) 10/14/16 06:00 Sodium 143 mmol/L (136-145) 10/14/16 06:00 Potassium 3.9 mmol/L (3.5-5.1) 10/14/16 06:00 Chloride 106 mmol/L (98-107) 10/14/16 06:00 Carbon Dioxide 27 mmol/L (21-32) 10/14/16 06:00 Anion Gap 10 (8-16) 10/14/16 06:00 BUN 15 mg/dL (7-18) 10/14/16 06:00 Creatinine 1.1 mg/dL (0.7-1.3) 10/14/16 06:00 Creat Clearance w eGFR > 60 (>60) 10/14/16 06:00 Random Glucose 93 mg/dL (74-106) 10/14/16 06:00 Calcium 8.9 mg/dL (8.5-10.1) 10/14/16 06:00 Total Bilirubin 0.8 mg/dL (0.2-1.0) D 10/14/16 06:00 AST 30 U/L (15-37) 10/14/16 06:00 ALT 32 U/L (12-78) D 10/14/16 06:00 Alkaline Phosphatase 100 U/L (45-117) 10/14/16 06:00 Total Protein 7.6 g/dl (6.4-8.2) 10/14/16 06:00 Albumin 3.8 g/dl (3.4-5.0) 10/14/16 06:00 Urine Color Ltyellow 10/13/16 13:00 Urine Appearance Clear 10/13/16 13:00 Urine pH 5.0 (5.0-8.0) 10/13/16 13:00 Ur Specific [place] 1.012 (1.001-1.035) 10/13/16 13:00 Urine Protein Negative (NEGATIVE) 10/13/16 13:00 Urine Glucose (UA) Negative (NEGATIVE) 10/13/16 13:00 Urine Ketones Negative (NEGATIVE) 10/13/16 13:00 Urine Blood 1+ (NEGATIVE) H 10/13/16 13:00 Urine Nitrite Negative (NEGATIVE) 10/13/16 13:00 Urine Bilirubin Negative (NEGATIVE) 10/13/16 13:00 Urine Urobilinogen Negative E.U./dl (0.2-1.0) 10/13/16 13:00 Ur Leukocyte Esterase Negative (NEGATIVE) 10/13/16 13:00 Urine RBC 2 /hpf (0-3) 10/13/16 13:00 Urine WBC 2 /hpf (3-5) 10/13/16 13:00 Ur Epithelial Cells Rare /hpf (FEW) 10/13/16 13:00 Urine Mucus Rare 10/13/16 13:00 RPR Titer Nonreactive (NONREACTIVE) 10/14/16 06:00 Assessment: 10/15/16 10:16 WITHDRAWAL SYMPTOM Plan: CONTINUE DETOX,ENCOURAGE ORAL FLUID
[2016-10-15] MEDS: AMMONIUM LACTATE 12% LOTION 225 GM BOTTLE TP SCH ×2 (10:17→22:30)
[2016-10-15] MEDS: LIDOCAINE 5% TOPICAL PATCH TP SCH (11:53)
--- NOTE | 2016-10-15 11:59 | EKG ---
Test Reason : Blood Pressure : / mmHG Vent. Rate : 061 BPM Atrial Rate : 061 BPM P-R Int : 142 ms QRS Dur : 098 ms QT Int : 420 ms P-R-T Axes : 066 064 036 degrees QTc Int : 422 ms NORMAL SINUS RHYTHM NORMAL ECG WHEN COMPARED WITH ECG OF 13-OCT-2016 14:19, NO SIGNIFICANT CHANGE WAS FOUND Confirmed by ARISTIDES PRICE MD ([id number]) on 10/15/2016 11:58:45 AM Referred By: Confirmed By:ARISTIDES PRICE MD
[2016-10-15] MEDS: chlordiazePOXIDE 5 MG CAPSULE PO SCH ×2 (17:12→22:28)
[2016-10-15] MEDS: PATIENT'S OWN MEDICATION (NON-FORMULARY) (Efavirenz/Emtricitab/Tenofovir 1 TAB) PO SCH (22:27)
[2016-10-15] MEDS: THIAMINE HCL 100 MG TABLET (FP) PO SCH (22:28)
[2016-10-15] MEDS: ARIPiprazole 15 MG TABLET PO SCH (22:28)
[2016-10-16] MEDS: chlordiazePOXIDE 5 MG CAPSULE PO SCH ×2 (05:08→10:10)
[2016-10-16] MEDS: PANTOPRAZOLE 40 MG TABLET (FP) PO SCH (07:08)
--- NOTE | 2016-10-16 09:49 | PN ---
S Progress Note (SOAP) Subjective: ALERT,IRRITABLE,INTERRUPTED SLEEP Objective: 10/16/16 09:48 Vital Signs Temperature 97.3 F L 10/16/16 06:11 Pulse Rate 61 10/16/16 06:11 Respiratory Rate 16 10/16/16 06:11 Blood Pressure 98/62 10/16/16 06:11 O2 Sat by Pulse Oximetry (%) Assessment: 10/16/16 09:48 WITHDRAWAL SYMPTOM Plan: CONTINUE DETOX
[2016-10-16] MEDS: BUDESONIDE/FORMETEROL FUMARATE 160/4.5 mcg INHALER IH SCH ×2 (10:10→22:11)
[2016-10-16] MEDS: AMMONIUM LACTATE 12% LOTION 225 GM BOTTLE TP SCH ×2 (10:10→22:11)
[2016-10-16] MEDS: CITALOPRAM HYDROBROMIDE 20 MG TABLET (FP) PO SCH (10:10)
[2016-10-16] MEDS: NICOTINE 21 MG/24 HOURS TOPICAL PATCH TD SCH (10:10)
[2016-10-16] MEDS: FLUTICASONE PROP 0.05% 16 GM NASAL SPRAY NS SCH ×2 (10:10→22:11)
[2016-10-16] MEDS: PRENATAL VITAMINS W/ FOLIC ACID TABLET (FP) PO SCH (10:10)
[2016-10-16] MEDS: LIDOCAINE 5% TOPICAL PATCH TP SCH (11:25)
[2016-10-16] MEDS: chlordiazePOXIDE HCL 10 MG CAPSULE PO SCH ×2 (17:47→22:09)
[2016-10-16] MEDS: THIAMINE HCL 100 MG TABLET (FP) PO SCH (22:10)
[2016-10-16] MEDS: ARIPiprazole 15 MG TABLET PO SCH (22:10)
[2016-10-16] MEDS: PATIENT'S OWN MEDICATION (NON-FORMULARY) (Efavirenz/Emtricitab/Tenofovir 1 TAB) PO SCH (22:12)
[2016-10-17] MEDS: chlordiazePOXIDE HCL 10 MG CAPSULE PO SCH (04:40)
[2016-10-17 05:45] VITALS: BP 117/62; PULSE 69; TEMP 97.5
[2016-10-17] MEDS: PANTOPRAZOLE 40 MG TABLET (FP) PO SCH (08:14)
--- NOTE | 2016-10-17 08:33 | PN ---
S Progress Note (SOAP) Subjective: ALERT.NO COMPLAINT Objective: 10/17/16 08:32 Vital Signs Temperature 97.5 F L 10/17/16 05:42 Pulse Rate 69 10/17/16 05:42 Respiratory Rate 18 10/17/16 05:42 Blood Pressure 117/62 10/17/16 05:42 O2 Sat by Pulse Oximetry (%) Assessment: 10/17/16 08:32 DETOX COMPLETED,NO WITHDRAWAL SYMPTOM Plan: DISCHARGE TODAY,FOLLOW UP WITH AFTER CARE PROGRAM ARRANGEMENT
--- NOTE | 2016-10-17 08:36 | DS ---
[facility] Detox Discharge Summary Admission Date: 10/13/16 Discharge Date: 10/17/16 - History Present History: Alcohol Dependence, Cocaine Dependence Additional Comments: FOLLOW UP WITH [facility] PROGRAM ARRANGEMENT AND PMD FOR MEDICAL PROBLEM Pertinent Past History: GERD ASTHMA HIV LOW BACK PAIN NICOTINE DEPENDENCE - Physical Exam Results Vital Signs: Vital Signs Temperature 97.5 F L 10/17/16 05:42 Pulse Rate 69 10/17/16 05:42 Respiratory Rate 18 10/17/16 05:42 Blood Pressure 117/62 10/17/16 05:42 O2 Sat by Pulse Oximetry (%) Pertinent Admission Physical Exam Findings: WITHDRAWAL SYMPTOM - Medication Discharge Medications: Ambulatory Orders Albuterol Sulfate Inhaler - [Ventolin Hfa Inhaler -] 2 inh PO Q4H PRN 08/24/16 Ammonium Lactate Lotion [Lac-Hydrin 12% Lotion -] 1 applic TP BID 08/24/16 Budesonide/Formeterol Fumarate [SYMBICORT 160/4.5mcg -] 2 inh PO BID 08/24/16 Citalopram Hydrobromide [Celexa -] 20 mg PO DAILY 08/24/16 Efavirenz/Emtricitab/Tenofovir [Atripla -] 1 tab PO HS 08/24/16 Fluticasone Prop 0.05% Nasal [Flonase -] 1 inh IH BID 08/24/16 Multivitamins [Tab-A-Vit -] 1 tab PO DAILY 08/24/16 Omeprazole 40 mg PO DAILY 08/24/16 Aripiprazole [Abilify -] 15 mg PO HS #30 tablet 08/25/16 Aripiprazole [Abilify -] 15 mg PO HS #30 tablet 10/13/16 Citalopram Hydrobromide [Celexa -] 20 mg PO DAILY #30 tablet 10/13/16 Lidocaine 5% Top. Ointment [Xylocaine 5% Top. Ointment] 1 applic TP TID - AMA Did Patient Leave Against Medical Advice: No
== END 2016-10-17 09:32 | disposition home or self-care (01) | DRG 773 ==
LOC: YASAS 10:41 → Y6N 14:27
PROVIDERS: ADMIT Internal Medicine Addiction Medicine; ATTEND Internal Medicine Addiction Medicine
PROC: HZ2ZZZZ Detoxification Services for Substance Abuse Treatment (ICD-10-PCS; principal; 2016-10-13)
DX: F10.230 Alcohol dependence with withdrawal, uncomplicated (principal); F14.20 Cocaine dependence, uncomplicated; F11.90 Opioid use, unspecified, uncomplicated; F31.9 Bipolar disorder, unspecified; K21.9 Gastro-esophageal reflux disease without esophagitis; J45.20 Mild intermittent asthma, uncomplicated; J44.9 Chronic obstructive pulmonary disease, unspecified; Z21 Asymptomatic human immunodeficiency virus [HIV] infection status; M54.5 Low back pain; G89.29 Other chronic pain; H02.401 Unspecified ptosis of right eyelid; G47.00 Insomnia, unspecified
CPT/HCPCS: 36415; 80053; 81003; 81015; 85027; 86593; 93005; 93010